=== PATIENT | female | born 1955 | race Caucasian/White ===

== ENCOUNTER 2021-10-30 08:28 | Day surgery (SDC) | payer MEDICARE, OTHER, SELFPAY ==
[2021-10-30] MEDS: Tropicam./Phenyleph. (1/2.5%) 5 ML BTL OS ×3 (09:11→09:26)
[2021-10-30 09:22] VITALS: BP 129/56; PULSE 68; RESP 98; TEMP 35.9; O2SAT 98
--- NOTE | 2021-10-30 09:34 | W.ANESPRE ---
General Info Date of Service Date Performed: 10/30/21 Height: 5 ft 1 in Weight: 98.6 kg Body Mass Index (BMI): 41.1 Surgical Procedure: Operation Date: 10/30/21 11:40 Proposed Procedure Side Surgeon p Cataract Extraction with IOL Implant Left Frandy Lawson MD Meds Allergies and Home Medications Allergies Allergy/AdvReac Type Severity Reaction Status Date / Time metformin Allergy Intermediate Other (See Unverified 10/30/21 09:03 Comment) nickel Allergy Intermediate Skin Rash Unverified 10/30/21 09:03 meperidine [From Demerol] Allergy Unknown Nausea Unverified 10/30/21 09:03 prednisone AdvReac Intermediate Other (See Unverified 10/30/21 09:03 Comment) Home Medication Medication Instructions Recorded ascorbic acid (vitamin C) 500 mg 500 mg PO DAILY 10/26/21 capsule aspirin 325 mg tablet 325 mg PO DAILY 10/26/21 atenolol 25 mg tablet 25 mg PO DAILY 10/26/21 coenzyme Q10 100 mg capsule 300 mg PO DAILY 10/26/21 glipizide 5 mg tablet 5 mg PO DAILY 10/26/21 insulin glargine 100 unit/mL (3 48 unit subcut DAILY 10/26/21 mL) subcutaneous pen (Lantus Solostar U-100 Insulin) levalbuterol HCl 0.63 mg/3 mL 0.63 mg inhalation PRN PRN 10/26/21 solution for nebulization liraglutide 0.6 mg/0.1 mL (18 mg/3 2.1 mg subcut DIRECTED 10/26/21 mL) subcutaneous pen injector nitroglycerin 0.4 mg sublingual 0.4 mg sublingual DIRECTED 10/26/21 tablet omeprazole 40 mg capsule,delayed 40 mg PO DAILY 10/26/21 release rosuvastatin 40 mg tablet 40 mg PO DAILY 10/26/21 Lacto-B.anim,bifid-inulin 30 1 cap PO DAILY 10/27/21 billion cell-50 mg capsule,delay release (Fortify Probiotic) cholecalciferol (vitamin D3) 125 125 mcg PO DAILY 10/27/21 mcg (5,000 unit) tablet (Vitamin D3) cyanocobalamin (vitamin B-12) 1,000 mcg PO DAILY 10/27/21 1,000 mcg tablet (Vitamin B-12) magnesium citrate 125 mg capsule 250 mg PO DAILY 10/27/21 omega-3 fatty acids 1 cap PO DAILY 10/27/21 Current Visit Medications: Current Medications Generic Name Dose Route Start Last Admin Trade Name Freq PRN Reason Stop Dose Admin Acetaminophen 1,000 mg 10/30/21 06:00 Acetaminophen 500 Mg Tab PO Q4H PRN PRN Miscellaneous Medication 0 ml 10/30/21 06:00 Prednisolone 1%, Moxifloxacin 0.5%, Nepafenac 0.1% 5ml Btl OS DIRECTED [facility] Miscellaneous Medication 0 ml 10/30/21 06:00 10/30/21 09:26 Tropicam./Phenyleph. (1/2.5%) 5 Ml Btl OS 1 drp DIRECTED SHERRY Administration Tetracaine HCl 0 ml 10/30/21 06:00 Tetracaine 0.5% 4 Ml Btl OS DIRECTED [facility] Medical History Medical History Alopecia Anxiety ASHD (arteriosclerotic heart disease) Cervical spondylolysis Chronic sinusitis Colon polyp Cystocele Diverticulosis Elevated ferritin GERD (gastroesophageal reflux disease) Heart palpitations Heartburn Hemorrhoids History of chicken pox History of COVID-19 04/2020 History of heart attack 04/2012 Stemi 95% RCA single stenosis with a BMS placement OT RCA. LVEDP 22. EF 50% per H&P note HLD (hyperlipidemia) HTN (hypertension) Hx of coronary angiogram Hyperhidrosis Hypomagnesemia Infection of left breast Liver hemangioma LANA (obstructive sleep apnea) Poorly controlled diabetes mellitus with diabetic peripheral engiopathy without gangrene PTTD (posterior tibial tendon dysfunction) Recurrent UTI Rotator cuff tendonitis Sciatica Shingles childhood Stress disorder, post traumatic Surgical History Surgical History History of bladder suspension procedure History of coronary artery stent placement 04/2012 History of left oophorectomy Hx of cardiac cath 2016 at [facility] notd 80% lesion OM1 sm, at [facility] 40% dRCA, med mgmt per H&P note 2013 2011 with [place] Hx of colonoscopy Hx of shoulder surgery Hx of sinus surgery maxillary sinus surgery (R) Hx of tonsillectomy Tobacco Smoking/Tobacco Use Status: Never Alcohol Alcohol Intake: never Substance Use Substance use: Never Substance use type: does not use Vital Signs and Lab Results Vital Signs Most Recent Vital Signs in EMR: Most Recent Vital Signs Temp Pulse Resp BP Pulse Ox 35.9 C L 68 98 H 129/56 L 98 10/30/21 09:22 10/30/21 09:22 10/30/21 09:22 10/30/21 09:22 10/30/21 09:22 Lab Results Blood Type / Crossmatch: No Data to Display Complete Blood Count: No Data to Display Complete Metabolic Panel: No Data to Display Liver Function Panel: No Data to Display Coagulation Panel: No Data to Display Cardiac Panel: No Data to Display Arterial Blood Gas: No Data to Display Venous Blood Gas: No Data to Display Pancreas Panel: No Data to Display Thyroid Panel: No Data to Display Infectious Disease: No Data to Display Blood Cultures: No Data to Display Toxicology Panel: No Data to Display Anesthesia Assessment and Plan Anesthesia History Personal History: No History of Anesthesia Complications Family History: No Family History of Anesthesia Complications Exercise Tolerance Exercise Tolerance: Metabolic Equivalents>4 Pertinent Negatives Pertinent Negatives: No Symptoms of GERD (Well controlled with medication ), No Major Cardiovascular Symptoms or Complaints (2012 [place]/ Stent), No Major Pulmonary Symptoms or Complaints and No History of CVA/TIA Cardiac & Pulmonary Exam Cardiac Exam: Normal S1/S2 Heart Sounds Pulmonary Exam: Clear Bilateral Breath Sounds Implantable Cardiac Device Does patient have a Pacemaker or an ICD?: No Airway Exam Known Difficult Airway: No Mallampati Class: 1 Mouth Opening: Normal (> 3cm) Thyromental Distance: Greater than 3 cm Neck Range of Motion: Full ROM Neck Circumference: Normal Teeth Condition: Normal Dentition Airway Comments: 2 broken crowns (upper right, lower left) ASA Classification ASA Score: ASA 2 Emergency Case?: No NPO Status NPO Status: NPO Clears >2 hours, Solids >8 hours Anesthesia Plan Resuscitation Status: Full Code Anesthesia Technique: MAC Anesthesia Airway Planned: Natural Airway Monitors Used: Standard Monitors
[2021-10-30 09:36] VITALS: BMI 41.1
[2021-10-30] MEDS: Tetracaine 0.5% 4 ML BTL OS (09:48)
[2021-10-30] MEDS: Lidocaine 2% Jelly 6 ML SYR (09:48)
[2021-10-30] MEDS: Balanced Salt Soln.-PLUS 500 ML BAG (10:00)
[2021-10-30] MEDS: Duovisc Viscoelastic System EACH 1 EACH (10:00)
[2021-10-30] MEDS: Povidone-Iodine Ophth 30 ML BTL (10:02)
[2021-10-30 10:15] VITALS: BP 147/53; PULSE 69; RESP 16; TEMP 36.4; O2SAT 100
--- NOTE | 2021-10-30 10:16 | W.ANESPOSTOP ---
Postoperative Evaluation Date, Time and Location Date Performed: 10/30/21 Time Performed: 10:16 Patient Location: Day Surgery Unit Vital Signs Most Recent Imported Vital Signs: Most Recent Vital Signs Temp Pulse Resp BP Pulse Ox 35.9 C L 68 98 H 129/56 L 98 10/30/21 09:22 10/30/21 09:22 10/30/21 09:22 10/30/21 09:22 10/30/21 09:22 Most Recent Manually Entered Vital Signs: Adult Blood Pressure: 147/53 Heart Rate: 67 Respirations: 12 Oxygen Saturation (%): 100 Temperature (C): 36.3 C Pain Score (0-10 Scale): 0 Pain Score Most Recent Pain Score: Most Recent Pain Score Pain Level 0 10/30/21 09:22 Assessment Mental Status: Awake (Alert & Oriented to Patient Baseline) Airway and Respiratory Function: Patent airway with normal (patient baseline) respiratory exam Cardiovascular Function: Hemodynamically Stable Hydration Status: Adequately Hydrated Nausea & Vomiting: No Nausea or Vomiting Pain: Pt. Denies Any Pain Peripheral Nerve Block: Patient did not receive a nerve block
[2021-10-30 10:17] VITALS: BP 147/53; PULSE 67; RESP 12; TEMPC 36.3; O2SAT 100
--- NOTE | 2021-10-30 10:18 | W.PM.DSUDISC ---
Discharge Plan Disposition Patient Disposition: HOME Condition: Good Discharge Details Attending Provider: Frandy Lawson Primary Care Provider: Angelique Sutton Home Meds and New Rx's Prescriptions: No Action levalbuterol HCl 0.63 mg/3 mL Solution For Nebulization 0.63 mg INHALATION PRN PRN aspirin 325 mg Tablet 325 mg PO DAILY atenolol 25 mg Tablet 25 mg PO DAILY omeprazole 40 mg Capsule,Delayed Release(Dr/Ec) 40 mg PO DAILY nitroglycerin 0.4 mg Tablet, Sublingual 0.4 mg sublingual DIRECTED glipizide 5 mg Tablet 5 mg PO DAILY coenzyme Q10 100 mg Capsule 300 mg PO DAILY rosuvastatin 40 mg Tablet 40 mg PO DAILY insulin glargine [Lantus Solostar U-100 Insulin] 100 unit/mL (3 mL) Insulin Pen 48 unit SUBCUT DAILY liraglutide 0.6 mg/0.1 mL (18 mg/3 mL) Pen Injector 2.1 mg SUBCUT DIRECTED ascorbic acid (vitamin C) 500 mg Capsule 500 mg PO DAILY cyanocobalamin (vitamin B-12) [Vitamin B-12] 1,000 mcg Tablet 1,000 mcg PO DAILY Fish Oil Capsule 1 cap PO DAILY cholecalciferol (vitamin D3) [Vitamin D3] 125 mcg (5,000 unit) Tablet 125 mcg PO DAILY magnesium citrate 125 mg Capsule 250 mg PO DAILY Fortify Probiotic 30 billion cell-50 mg Capsule,Delayed Release(Dr/Ec) 1 cap PO DAILY Discharge Instructions Stand Alone Forms: Post-op Topical Cataract, Mary Cartwright (DSU) Discharge Orders Discharge Orders: Discharge Order (Routine); Ordered 10/30/21 Ordered By: Frandy Lawson DS: Diagnosis Discharge Diagnosis (1) Cortical cataract of left eye: Status: Resolved (2) Nuclear sclerotic cataract of left eye: Status: Resolved
--- NOTE | 2021-10-30 10:19 | ROE_ITS ---
Date of service: 10/30/21 Time of Service: 10:19 Operative Note Operative Note DATE OF PROCEDURE: 10/30/21 PRE-OP DIAGNOSIS: Nuclear/cortical cataract, left eye With the rule astigmatism, left eye POST-OP DIAGNOSIS: same PROCEDURE: Cataract extraction using phacoemulsification with toric intraocular lens implant, left eye SURGEON: Frandy Lawson ANESTHESIA TYPE: Local By Surgeon and MAC Refer to Anesthesia Record PATHOLOGY: none sent COMPLICATIONS: None Patient was transported to: same day Patient's condition: stable Implants: Marcelo [employer] / [employer] Toric Intraocular Lens Indications: Progressive decreased vision due to cataract, left eye, with corneal astigmatism Procedure Description: CATARACT SURGERY OPERATIVE REPORT PREOPERATIVE DIAGNOSIS: Nuclear/cortical cataract, left eye With the rule astigmatism, left eye POSTOPERATIVE DIAGNOSIS: Same OPERATION: Cataract extraction using phacoemulsification with posterior chamber toric intraocular lens implant, left eye. IOL: IOL Pattern Clerk/Model: [employer] Vision / BHAVANA Tecnis Eyhance [id number] IOL Power: + 20.5 diopters sphere, 4.50 cylinder IOL Serial Number: [id number] Optic Diameter: 6.0mm Haptic/Overall Diameter: 13.00mm PHACO INFO: Ryan [employer] Vision System with OZil and Active Fluidics Cumulative Dispersed Energy (CDE): 4.36 seconds SURGEON: Frandy Lawson MD, RAMU ANESTHESIA: Monitored Anesthesia Care (MAC), with local sub-tenon's anesthetic infiltration COMPLICATIONS: None SPECIMENS: None INDICATIONS FOR PROCEDURE: The patient is a 65-year-old lady with long history of myopia and astigmatism who has developed a symptomatic nuclear/cortical cataract of the left eye. The option of cataract surgery was offered to the patient and she wished to proceed. In addition, the option of a toric intraocular lens implant at the time of cataract surgery was offered and she desired to proceed with that as well. PROCEDURE: The correct surgical eye was identified and marked as the left eye and the pupil was dilated in the preoperative area using mydriatics and cycloplegics. The dilated pupil size was 7.0 mm. With the patient in the seated position, topical anesthetic was applied and a surgical marker was used to rupal the limbus at 6:00. A Surgilum Robomarker was then used to rupal the 0/180 degree reference axis. She elected to proceed without oral sedation. The patient was brought to the operating room where cardiopulmonary monitoring was instituted and surgical time-out was performed, confirming the correct operative eye and IOL power. Topical anesthesia was administered and ophthalmic povidone-iodine 5% was instilled into the conjunctival fornices. Lidocaine gel was applied to the cornea and the josseline-ocular area was prepped with Betadine 10% solution and draped in the usual sterile fashion for intraocular surgery, including an aperture drape. A Tegaderm transparent film dressing was cut in half and used to cover the lashes and lid margins. Care was taken to sequester the lashes and lid margins under the Tegaderm dressing. A lid speculum was placed between the lids of the operative eye and the Ryan [employer] Revaliat operating microscope was maneuvered into position. Pamella scissors were then used to make a conjunctival buttonhole approximately 6mm posterior to the limbus in the inferonasal quadrant. Blunt dissection was carried out to expose bare sclera, and a blunt-tipped sub-tenon?s anesthesia cannula was introduced and passed posteriorly along the globe where non- preserved plain lidocaine was injected into posterior sub-Tenon?s space. A corneal ring gauge and axis marker were then used to rupal the 002 degree position for the main phaco incision, and the 92/272 degree axis for alignment of the toric IOL. A sideport knife was used to make a paracentesis port renner periorly. Intraocular phenylephrine/lidocaine was injected into the anterior chamber. The anterior chamber was then filled with viscoelastic. A 2.4mm keratome knife was used to create a half-thickness groove at the limbus and then to construct a three-plane near-clear corneal tunnel extending 2.0mm into clear cornea at the 002 degree axis. . A flap was raised on the anterior capsule and capsulorhexis forceps were used to complete a continuous curvilinear capsulorhexis of 5.0 mm. Balanced salt solution was then used to perform cortical cleaving hydrodissection and nuclear hydrodelineation until the lens could be freely rotated within the capsular bag. The lens nucleus was then disassembled and removed within the capsular bag and iris plane using phacoemulsification. Residual cortical material was removed using the 45-degree angled silicone I/A tip with 0.3mm port. The posterior capsule was carefully polished to remove as much residual lens epithelial cells as safely possible. The capsular bag was then inflated and the anterior chamber deepened with viscoelastic. The lens implant described above was inserted into the capsular bag using the [employer] preloaded injector. A Kuglen hook was used to dial the IOL into position, about 10 degrees counterclockwise of its final alignment. Residual viscoelastic was then removed first from posterior to the IOL, then from the anterior chamber using the I/A handpiece. The I/A handpiece was then used to dial the IOL to the target axis. The lens implant was noted to center nicely within the capsular bag, with the toric IOL nicole aligned at the 92/272 degree axis. The incisions were stromally hydrated, and the anterior chamber was reformed using BSS. Then 0.5cc of moxifloxacin 1.0mg/ml were injected into the capsular bag and anterior chamber. The incisions were checked with a Weck spear and found to be secure. Several drops of ophthalmic povidone-iodine 5% were then applied to the eye followed by two drops of Imprimis combination prednisolone/moxifloxacin/nepafenac solution. The drapes were removed and a clear plastic protective eye shield was placed over the eye. The patient was then returned to Same Day Surgery in stable condition.
== END 2021-10-30 10:39 | disposition home or self-care (01) ==
PROVIDERS: PCP Family Medicine; Visit Provider Ophthalmology
PROC: (CPT 66984; principal; 2021-10-30 11:30)
DX: H25.12 Age-related nuclear cataract, left eye (principal); I10 Essential (primary) hypertension; E78.5 Hyperlipidemia, unspecified; G47.33 Obstructive sleep apnea (adult) (pediatric); E11.51 Type 2 diabetes mellitus with diabetic peripheral angiopathy without gangrene
CPT/HCPCS: 66984; V2632

== ENCOUNTER 2022-02-05 12:09 | Day surgery (SDC) | payer MEDICARE, OTHER, SELFPAY ==
--- NOTE | 2022-02-05 13:25 | HPE_ITS ---
Assessment and Plan Assessment and plan (1) Nuclear sclerotic cataract of left eye: Status: Resolved Assessment and plan: Assessment: Visually significant cataract of the right eye. Plan: Cataract extraction with lens implantation of a toric IOL, right eye (2) Cortical cataract of left eye: Status: Resolved Assessment and plan: Assessment: Visually significant cataract of the right eye. Plan: Cataract extraction with lens implantation of a toric IOL, right eye History of Present Illness History of Present Illness Chief Complaint: Progressive decreased vision, right eye Narrative: The patient is a 65-year-old lady with history of myopic astigmatism who has developed symptomatic bilateral nuclear and cortical cataract. She also has a history of significant with the rule astigmatism. She has already undergone cataract surgery in the left eye in October 2021 and is doing well postoperatively. She now presents for cataract surgery in the right eye. She notes difficulty with glare from headlights at night and difficulty reading road signs. Review of Systems All systems reviewed & are unremarkable except as noted in HPI and below PFSH Medical History Alopecia Anxiety ASHD (arteriosclerotic heart disease) Cervical spondylolysis Chronic sinusitis Colon polyp Cystocele Diverticulosis Elevated ferritin GERD (gastroesophageal reflux disease) Heart palpitations Heartburn Hemorrhoids History of chicken pox History of COVID-19 04/2020 History of heart attack 04/2012 Stemi 95% RCA single stenosis with a BMS placement OT RCA. LVEDP 22. EF 50% per H&P note HLD (hyperlipidemia) HTN (hypertension) Hx of coronary angiogram Hyperhidrosis Hypomagnesemia Infection of left breast Liver hemangioma LANA (obstructive sleep apnea) Poorly controlled diabetes mellitus with diabetic peripheral engiopathy without gangrene PTTD (posterior tibial tendon dysfunction) Recurrent UTI Rotator cuff tendonitis Sciatica Shingles childhood Stress disorder, post traumatic Surgical History History of bladder suspension procedure History of coronary artery stent placement 04/2012 History of left oophorectomy Hx of cardiac cath 2017 at [facility] notd 80% lesion OM1 sm, at [place] 40% dRCA, med mgmt per H&P note 2013 2011 with [place] Hx of colonoscopy Hx of shoulder surgery Hx of sinus surgery maxillary sinus surgery (R) Hx of tonsillectomy Social History Smoking/Tobacco Use Status: Never Smoking risk assessment performed?: Yes Alcohol Intake: never Drug use: Never Substance use type: does not use Do you feel safe at home: Yes Do you feel safe in your relationship?: Yes Meds Allergies and Home Medications Allergies Allergy/AdvReac Type Severity Reaction Status Date / Time metformin Allergy Intermediate Other (See Unverified 10/30/21 09:03 Comment) nickel Allergy Intermediate Skin Rash Unverified 10/30/21 09:03 meperidine [From Demerol] Allergy Unknown Nausea Unverified 10/30/21 09:03 prednisone AdvReac Intermediate Other (See Unverified 10/30/21 09:03 Comment) Home Medications Medication Instructions Recorded Confirmed Type ascorbic acid (vitamin C) 500 mg 500 mg PO DAILY 10/26/21 10/30/21 History capsule aspirin 325 mg tablet 325 mg PO DAILY 10/26/21 10/30/21 History atenolol 25 mg tablet 25 mg PO DAILY 10/26/21 10/30/21 History coenzyme Q10 100 mg capsule 300 mg PO DAILY 10/26/21 10/30/21 History glipizide 5 mg tablet 5 mg PO DAILY 10/26/21 10/30/21 History insulin glargine 100 unit/mL (3 48 unit subcut DAILY 10/26/21 10/30/21 History mL) subcutaneous pen (Lantus Solostar U-100 Insulin) levalbuterol HCl 0.63 mg/3 mL 0.63 mg inhalation PRN PRN 10/26/21 10/27/21 History solution for nebulization liraglutide 0.6 mg/0.1 mL (18 mg/3 2.1 mg subcut DIRECTED 10/26/21 10/30/21 History mL) subcutaneous pen injector nitroglycerin 0.4 mg sublingual 0.4 mg sublingual DIRECTED 10/26/21 10/27/21 History tablet omeprazole 40 mg capsule,delayed 40 mg PO DAILY 10/26/21 10/30/21 History release rosuvastatin 40 mg tablet 40 mg PO DAILY 10/26/21 10/30/21 History Lacto-B.anim,bifid-inulin 30 1 cap PO DAILY 10/27/21 10/30/21 History billion cell-50 mg capsule,delay release (Fortify Probiotic) cholecalciferol (vitamin D3) 125 125 mcg PO DAILY 10/27/21 10/30/21 History mcg (5,000 unit) tablet (Vitamin D3) cyanocobalamin (vitamin B-12) 1,000 mcg PO DAILY 10/27/21 10/30/21 History 1,000 mcg tablet (Vitamin B-12) magnesium citrate 125 mg capsule 250 mg PO DAILY 10/27/21 10/30/21 History omega-3 fatty acids 1 cap PO DAILY 10/27/21 10/30/21 History Exam Eyes Other: Corrected with visual acuity measures 20/30 in the right eye. Uncorrected visual acuity measures 20/30 in the left eye. Extraocular motility is normal. Intraocular pressure is 18 OD, 14 OS. Extraocular motility is normal. Slit- lamp examination is significant for a moderate nuclear and cortical cataract in the right eye. There is a well-positioned toric PCIOL in the left eye. Funduscopic examination is significant for disc cupping of 0.25 OU with normal vessels, macula, peripheral retina and vitreous. Resp Auscultation: clear to auscultation bilaterally Cardio Rate: regular rate Rhythm: regular rhythm
[2022-02-05] MEDS: Tropicam./Phenyleph. (1/2.5%) 5 ML BTL OD ×3 (13:34→14:09)
[2022-02-05 13:55] VITALS: BP 142/58; PULSE 70; RESP 16; TEMP 36.1; O2SAT 99
--- NOTE | 2022-02-05 14:41 | ANES_ITS ---
Date of service: 02/05/22 Time of Service: 14:42 Anesthesia Note Report Anesthesia Note: Pt. here for cataract surgery today. She states that she had a heart attack 3 months ago with stent placement at [facility] [place]. She said her assembler gold frame cleared her for this elective procedure. I spoke to Dr. William ([phone]) nurse who could not find record of this clearance. She asked him just now and he said she should wait for 6 months. I spoke to patient and said she should followup up with her assembler gold frame and that we would be happy to do this procedure once cleared. She understands and will do this.
--- NOTE | 2022-02-05 14:41 | PDOC.ANES ---
Date of service: 02/05/22 Time of Service: 14:42 Anesthesia Note Report Anesthesia Note: Pt. here for cataract surgery today. She states that she had a heart attack 3 months ago with stent placement at [facility] [place]. She said her polytechnic registrar cleared her for this elective procedure. I spoke to Dr. William ([phone]) nurse who could not find record of this clearance. She asked him just now and he said she should wait for 6 months. I spoke to patient and said she should followup up with her polytechnic registrar and that we would be happy to do this procedure once cleared. She understands and will do this.
== END 2022-02-05 12:10 | disposition home or self-care (01) ==
LOC: SUR 12:10
PROVIDERS: PCP Family Medicine; Visit Provider Ophthalmology
DX: H26.9 Unspecified cataract (principal); Z53.09 Procedure and treatment not carried out because of other contraindication

== ENCOUNTER 2022-06-04 09:55 | Day surgery (SDC) | payer MEDICARE, SELFPAY ==
--- NOTE | 2022-06-04 06:50 | ANES.PREOP_ITS ---
General Info Date of Service Date Performed: 06/04/22 Height: 5 ft 1 in Weight: 99 kg Body Mass Index (BMI): 41.2 Surgical Procedure: Operation Date: 06/04/22 12:10 Proposed Procedure Side Surgeon p Cataract Extraction with IOL Implant Right Frandy Lawson MD Meds Allergies and Home Medications Allergies Allergy/AdvReac Type Severity Reaction Status Date / Time metformin Allergy Intermediate Other (See Unverified 06/04/22 10:37 Comment) nickel Allergy Intermediate Skin Rash Unverified 06/04/22 10:37 meperidine [From Demerol] Allergy Unknown Nausea Unverified 06/04/22 10:37 prednisone AdvReac Intermediate Other (See Unverified 06/04/22 10:37 Comment) Home Medication Medication Instructions Recorded ascorbic acid (vitamin C) 500 mg 500 mg PO DAILY 10/26/21 capsule coenzyme Q10 100 mg capsule 300 mg PO DAILY 10/26/21 levalbuterol HCl 0.63 mg/3 mL 0.63 mg inhalation PRN PRN 10/26/21 solution for nebulization nitroglycerin 0.4 mg sublingual 0.4 mg sublingual DIRECTED 10/26/21 tablet rosuvastatin 40 mg tablet 40 mg PO DAILY 10/26/21 Lacto-B.anim,bifid-inulin 30 1 cap PO DAILY 10/27/21 billion cell-50 mg capsule,delay release (Fortify Probiotic) cholecalciferol (vitamin D3) 125 125 mcg PO DAILY 10/27/21 mcg (5,000 unit) tablet (Vitamin D3) magnesium citrate 125 mg capsule 250 mg PO DAILY 10/27/21 omega-3 fatty acids 1 cap PO DAILY 10/27/21 aspirin 81 mg tablet,delayed 81 mg PO DAILY 02/05/22 release clopidogrel 75 mg tablet (Plavix) 75 mg PO DAILY 02/05/22 furosemide 40 mg tablet 40 mg PO DAILY 02/05/22 insulin degludec 100 unit/mL (3 60 unit subcut QHS 02/05/22 mL) subcutaneous pen (Tresiba FlexTouch U-100 insulin) insulin lispro 200 unit/mL (3 mL) 16 sliding scale dose subcut TID 02/05/22 subcutaneous pen (Humalog KwikPen U-200 Insulin) metoprolol succinate 100 mg 100 mg PO DAILY 02/05/22 tablet,extended release 24 hr metoprolol succinate 50 mg 50 mg PO DAILY 02/05/22 tablet,extended release 24 hr pantoprazole 20 mg tablet,delayed 20 mg PO HS 02/05/22 release semaglutide 1 mg/dose (2 mg/1.5 1 subcut QWEEK 02/05/22 mL) subcutaneous pen injector (Ozempic) Current Visit Medications: Current Medications Generic Name Dose Route Start Last Admin Trade Name Freq PRN Reason Stop Dose Admin Acetaminophen 1,000 mg 06/04/22 06:00 Acetaminophen 500 Mg Tab PO Q4H PRN PRN Miscellaneous Medication 0 ml 06/04/22 06:00 Prednisolone 1%, Moxifloxacin 0.5%, Nepafenac 0.1% 5ml Btl OD DIRECTED [facility] Miscellaneous Medication 0 ml 06/04/22 06:00 Tropicam./Phenyleph. (1/2.5%) 5 Ml Btl OD DIRECTED [facility] Tetracaine HCl 0 ml 06/04/22 06:00 Tetracaine 0.5% 4 Ml Btl OD DIRECTED [facility] Active Problems Active Problems: Problem Status Onset Code Cortical cataract of right eye H26.9 Nuclear sclerotic cataract of right eye H25.11 Nuclear sclerotic cataract of left eye H25.12 Cortical cataract of left eye H26.9 Medical History Medical History Alopecia Anxiety ASHD (arteriosclerotic heart disease) Cervical spondylolysis Chronic sinusitis Colon polyp Cystocele Diverticulosis Elevated ferritin GERD (gastroesophageal reflux disease) Heart palpitations Heartburn Hemorrhoids History of chicken pox History of COVID-19 04/2020 History of heart attack 04/2012 Stemi 95% RCA single stenosis with a BMS placement OT RCA. LVEDP 22. EF 50% per H&P note HLD (hyperlipidemia) HTN (hypertension) Hx of coronary angiogram Hyperhidrosis Hypomagnesemia Infection of left breast Liver hemangioma LANA (obstructive sleep apnea) Poorly controlled diabetes mellitus with diabetic peripheral engiopathy without gangrene PTTD (posterior tibial tendon dysfunction) Recurrent UTI Rotator cuff tendonitis Sciatica Shingles childhood Stress disorder, post traumatic Surgical History Surgical History History of bladder suspension procedure History of coronary artery stent placement 04/2012 History of left oophorectomy Hx of cardiac cath [place] [facility] [place] 80% lesion OM1 sm, at [place] 40% dRCA, med mgmt per H&P note 2013 2011 with ID Hx of colonoscopy Hx of shoulder surgery Hx of sinus surgery maxillary sinus surgery (R) Hx of tonsillectomy Tobacco Smoking/Tobacco Use Status: Never Alcohol Alcohol Intake: never Substance Use Substance use: Never Substance use type: does not use Vital Signs and Lab Results Vital Signs Most Recent Vital Signs in EMR: Temp Pulse Resp BP Pulse Ox 36.9 C 75 16 133/62 100 06/04/22 10:26 06/04/22 10:26 06/04/22 10:26 06/04/22 10:26 06/04/22 10:26 Lab Results Blood Type / Crossmatch: No Data to Display Complete Blood Count: No Data to Display Complete Metabolic Panel: No Data to Display Liver Function Panel: No Data to Display Coagulation Panel: No Data to Display Cardiac Panel: No Data to Display Arterial Blood Gas: No Data to Display Venous Blood Gas: No Data to Display Pancreas Panel: No Data to Display Thyroid Panel: No Data to Display Infectious Disease: No Data to Display Blood Cultures: No Data to Display Toxicology Panel: No Data to Display Anesthesia Assessment and Plan Anesthesia History Personal History: No History of Anesthesia Complications Family History: No Family History of Anesthesia Complications Exercise Tolerance Exercise Tolerance: Metabolic Equivalents>4 Cardiac & Pulmonary Exam Cardiac Exam: Normal S1/S2 Heart Sounds Pulmonary Exam: Clear Bilateral Breath Sounds Implantable Cardiac Device Does patient have a Pacemaker or an ICD?: No Airway Exam Known Difficult Airway: No Mallampati Class: 1 Mouth Opening: Normal (> 3cm) Thyromental Distance: Greater than 3 cm Neck Range of Motion: Full ROM Neck Circumference: Normal Teeth Condition: Normal Dentition Airway Comments: 2 broken crowns (upper right, lower left) ASA Classification ASA Score: ASA 3 Emergency Case?: No NPO Status NPO Status: NPO Clears >2 hours, Solids >8 hours Anesthesia Plan Resuscitation Status: Full Code Anesthesia Technique: MAC Anesthesia Airway Planned: Natural Airway Monitors Used: Standard Monitors Preoperative Comments:: 66 yo female for repeat cataract removal. no previous MKO, would like to do the same this time. Sig PMHx: ID (2011 and 2021, ? both to RCA with BARRON stents. was performed [place] [facility] [place]. has been doing well, denies NTG use), blood clot (? had DVT in the arm they did her most recent ID through, for which she was on warfarin), anxiety, HTN (metoprolol, furosemide) GERD (pantoprazole), LANA, DM (poorly controlled), cervical spondylolysis, palpitations, asthma (levalbuterol). Previous Cat: no sedation.
[2022-06-04 10:26] VITALS: BP 133/62; PULSE 75; RESP 16; TEMP 36.9; O2SAT 100
[2022-06-04] MEDS: Tropicam./Phenyleph. (1/2.5%) 5 ML BTL OD ×3 (10:33→10:51)
[2022-06-04 10:51] VITALS: BMI 41.2
[2022-06-04] MEDS: Lidocaine 2% Jelly 6 ML SYR (11:48)
[2022-06-04] MEDS: Tetracaine 0.5% 4 ML BTL OD (11:48)
[2022-06-04] MEDS: Balanced Salt Soln.-PLUS 500 ML BAG (12:01)
[2022-06-04] MEDS: Duovisc Viscoelastic System EACH 1 EACH (12:01)
[2022-06-04] MEDS: Lidocaine 1% Pres-Free 5 ML VIAL (12:03)
[2022-06-04] MEDS: Povidone-Iodine Ophth 30 ML BTL (12:03)
[2022-06-04 12:19] VITALS: BP 145/67; PULSE 70; RESP 16; TEMP 36.3; O2SAT 100
--- NOTE | 2022-06-04 12:22 | ROE_ITS ---
Date of service: 06/04/22 Time of Service: 12:23 Operative Note Operative Note DATE OF PROCEDURE: 06/04/22 PRE-OP DIAGNOSIS: Nuclear/cortical cataract, right eye Significant with the rule astigmatism, right eye POST-OP DIAGNOSIS: same PROCEDURE: Cataract extraction using phacoemulsification with toric intraocular lens implant, right eye SURGEON: Frandy Lawson Refer to Anesthesia Record PATHOLOGY: none sent COMPLICATIONS: None Patient was transported to: same day Patient's condition: stable Implants: Marcelo and [employer] Vision Tecnis Toric Intraocular Lens Indications: Progressive decreased vision due to cataract, right eye, with corneal astigmatism Procedure Description: CATARACT SURGERY OPERATIVE REPORT PREOPERATIVE DIAGNOSIS: Nuclear/cortical cataract, right eye Significant with double astigmatism, right eye POSTOPERATIVE DIAGNOSIS: Same OPERATION: Cataract extraction using phacoemulsification with posterior chamber toric intraocular lens implant, right eye. IOL: IOL Trim Operator/Model: [employer]net&[employer] Vision Tecnis Toric [id number] IOL Power: +19.5 diopters sphere, + 5.25 cylinder IOL Serial Number: [id number] Optic Diameter: 6.0mm Haptic/Overall Diameter: 13.00mm PHACO INFO: Ryan Crumpet Cashmereurion Vision System with OZil and Active Fluidics Cumulative Dispersed Energy (CDE): 9.58 seconds SURGEON: Frandy Lawson MD, RAMU ANESTHESIA: Monitored Anesthesia Care (MAC), with local sub-tenon's anesthetic infiltration COMPLICATIONS: None SPECIMENS: None INDICATIONS FOR PROCEDURE: The patient is a 66-year-old lady with history of diminished visual acuity in her right eye secondary to the development of nuclear/cortical cataract. She is significantly symptomatic that she desires cataract surgery and attempt to improve and maximize her vision. She also has a significant amount of with the rule corneal a stigmatism, and desires a toric intraocular lens implant. PROCEDURE: The correct surgical eye was identified and marked as the right eye and the pupil was dilated in the preoperative area using mydriatics and cycloplegics. The dilated pupil size was 6.0 mm. With the patient in the seated position, topical anesthetic was applied and a surgical marker was used to rupal the limbus at 6:00. A Surgilum Robomarker was then used to rupal the 0/180 degree reference axis. The patient elected to proceed without oral sedation. The patient was brought to the operating room where cardiopulmonary monitoring was instituted and surgical time-out was performed, confirming the correct operative eye and IOL power. Topical anesthesia was administered and ophthalmic povidone-iodine 5% was instilled into the conjunctival fornices. Lidocaine gel was applied to the cornea and the josseline-ocular area was prepped with Betadine 10% solution and draped in the usual sterile fashion for intraocular surgery, including an aperture drape. A Tegaderm transparent film dressing was cut in half and used to cover the lashes and lid margins. Care was taken to sequester the lashes and lid margins under the Tegaderm dressing. A lid speculum was placed between the lids of the operative eye and the Franki-Soila operating microscope was maneuvered into position. Pamella scissors were then used to make a conjunctival buttonhole approximately 6mm posterior to the limbus in the inferonasal quadrant. Blunt dissection was carried out to expose bare sclera, and a blunt-tipped sub-tenon?s anesthesia cannula was introduced and passed posteriorly along the globe where non- preserved plain lidocaine was injected into posterior sub-Tenon?s space. A corneal ring gauge and axis marker were then used to rupal the 180 degree position for the main phaco incision.and the 90/270 degree axis for alignment of the toric IOL. A sideport knife was used to make a paracentesis port at the 7:00 postion and intraocular phenylephrine/lidocaine was injected into the anterior chamber. The anterior chamber was filled with viscoelastic.. A keratome knife was used to create a half-thickness groove at the limbus and then to construct a three-plane near-clear corneal tunnel extending 2.0mm into clear cornea at the 180 degree axis. . A flap was raised on the anterior capsule and capsulorhexis forceps were used to complete a continuous curvilinear capsulorhexis of 5.0 mm. Balanced salt solution was then used to perform cortical cleaving hydrodissection and nuclear hydrodelineation until the lens could be freely rotated within the capsular bag. The lens nucleus was then disassembled and removed within the capsular bag and iris plane using phacoemulsification. Residual cortical material was removed using the 45-degree angled silicone I/A tip with 0.3mm port. The posterior capsule was carefully polished to remove as much residual lens epithelial cells as safely possible. The capsular bag was then inflated and the anterior chamber deepened with viscoelastic. The lens implant described above was inserted into the capsular bag using IOL injector. A Kuglen hook was used to dial the IOL into position, about 10 degrees counterclockwise of its final alignment. Residual viscoelastic was then removed first from posterior to the IOL, then from the anterior chamber using the I/A handpiece. The I/A handpiece was then used to dial the IOL to the target axis. The lens implant was noted to center nicely within the capsular bag, with the toric IOL nicole aligned at the 90/270 degree axis. The incisions were stromally hydrated, and the anterior chamber was reformed using BSS. Then 0.5cc of moxifloxacin 1.0mg/ml were injected into the capsular bag and anterior chamber. The incisions were checked with a Weck spear and found to be secure. Several drops of ophthalmic povidone-iodine 5% were then applied to the eye followed by two drops of Imprimis combination gatifloxacin/dexamethasone solution. The drapes were removed and a clear plastic protective eye shield was placed over the eye. The patient was then returned to Same Day Surgery in stable condition.
--- NOTE | 2022-06-04 12:22 | W.PM.DSUDISC ---
Date of service: 06/04/22 Time of Service: 12:22 Discharge Plan Disposition Patient Disposition: Home Discharge Details Attending Provider: Frandy Lawson Primary Care Provider: Angelique Sutton Home Meds and New Rx's Prescriptions: No Action levalbuterol HCl 0.63 mg/3 mL Solution For Nebulization 0.63 mg INHALATION PRN PRN nitroglycerin 0.4 mg Tablet, Sublingual 0.4 mg sublingual DIRECTED coenzyme Q10 100 mg Capsule 300 mg PO DAILY rosuvastatin 40 mg Tablet 40 mg PO DAILY ascorbic acid (vitamin C) 500 mg Capsule 500 mg PO DAILY Fish Oil Capsule 1 cap PO DAILY cholecalciferol (vitamin D3) [Vitamin D3] 125 mcg (5,000 unit) Tablet 125 mcg PO DAILY magnesium citrate 125 mg Capsule 250 mg PO DAILY Fortify Probiotic 30 billion cell-50 mg Capsule,Delayed Release(Dr/Ec) 1 cap PO DAILY pantoprazole 20 mg Tablet,Delayed Release (Dr/Ec) 20 mg PO HS metoprolol succinate 50 mg Tablet Extended Release 24 Hr 50 mg PO DAILY metoprolol succinate 100 mg Tablet Extended Release 24 Hr 100 mg PO DAILY aspirin [Aspir-81] 81 mg Tablet,Delayed Release (Dr/Ec) 81 mg PO DAILY furosemide 40 mg Tablet 40 mg PO DAILY Humalog KwikPen Insulin 200 unit/mL (3 mL) Insulin Pen 16 sliding scale dose SUBCUT TID clopidogrel [Plavix] 75 mg Tablet 75 mg PO DAILY insulin degludec [Tresiba FlexTouch U-100] 100 unit/mL (3 mL) Insulin Pen 60 unit SUBCUT QHS Ozempic 1 mg/dose (2 mg/1.5 mL) Pen Injector 1 SUBCUT QWEEK Discharge Instructions Stand Alone Forms: Post-op Topical Cataract, Press Ganey (DSU) Discharge Orders Discharge Orders: Discharge Order (Routine); Ordered 06/04/22 Ordered By: Frandy Lawson DS: Diagnosis Discharge Diagnosis (1) Cortical cataract of right eye: Status: Resolved (2) Nuclear sclerotic cataract of right eye: Status: Resolved
--- NOTE | 2022-06-04 12:47 | W.ANESPOSTOP ---
Postoperative Evaluation Date, Time and Location Date Performed: 06/04/22 Time Performed: 12:30 Patient Location: Day Surgery Unit Vital Signs Most Recent Imported Vital Signs: Most Recent Vital Signs Temp Pulse Resp BP Pulse Ox 36.3 C L 70 16 145/67 H 100 06/04/22 12:19 06/04/22 12:19 06/04/22 12:19 06/04/22 12:19 06/04/22 12:19 Pain Score Most Recent Pain Score: Most Recent Pain Score Pain Level 0 06/04/22 12:19 Assessment Mental Status: Awake (Alert & Oriented to Patient Baseline) Airway and Respiratory Function: Patent airway with normal (patient baseline) respiratory exam Cardiovascular Function: Hemodynamically Stable Hydration Status: Adequately Hydrated Nausea & Vomiting: No Nausea or Vomiting Pain: Pt. Denies Any Pain Peripheral Nerve Block: Patient did not receive a nerve block
== END 2022-06-04 12:41 | disposition home or self-care (01) ==
LOC: SUR 09:55
PROVIDERS: PCP Family Medicine; Visit Provider Ophthalmology
PROC: (CPT 66984; principal; 2022-06-04 12:00)
DX: H25.11 Age-related nuclear cataract, right eye (principal); H52.201 Unspecified astigmatism, right eye
CPT/HCPCS: 66984; V2632